=== PATIENT | female | born 1980 | race Caucasian/White ===

== ENCOUNTER 2017-06-13 09:48 | Emergency (ER) | payer MEDICARE ==
[~2017-06-13] VITALS: Ht 162.6 cm; Wt 55.0 kg
[2017-06-13 09:50] VITALS: BP 129/71
== END 2017-06-13 12:56 | disposition left against medical advice (07) ==
LOC: ER 09:48
DX: Z53.21 Procedure and treatment not carried out due to patient leaving prior to being seen by health care provider (principal)